=== PATIENT | male | born 1990 | race Caucasian/White ===

== ENCOUNTER → 2024-09-23 09:06 | Outpatient (REF) | payer OTHER, SELFPAY ==
[2024-09-23 13:24] LABS: Mumps Virus IgG Positive; Rubeola (Measles) IgG Positive; Varicella Zoster IgG (VZV) Positive
[2024-09-23 18:34] LABS: Rubella Negative
[2024-09-23 18:54] LABS: Hepatitis B Surface Antibody Negative
[2024-09-25 07:42] LABS: Quantiferon Mitogen minus NIL 9.98 IU/mL; Quantiferon NIL 0.02 IU/mL; Quantiferon Plus TB2 minus NIL 0.01 IU/mL (<=0.34); Quantiferon TB Gold Plus Negative (Negative)
== END ==
LOC: OLAB 09:06
PROVIDERS: ATTENDING PHYSICIAN Nurse Practitioner Family
DX: Z23 Encounter for immunization (principal)
CPT/HCPCS: 36415; 86480; 86706; 86735; 86762; 86765; 86787

== ENCOUNTER → 2024-12-27 15:58 | Outpatient (REF) | payer OTHER, SELFPAY ==
[2024-12-27 17:39] LABS: Hepatitis B Surface Antibody Negative
== END ==
LOC: REG 15:58
PROVIDERS: ATTENDING PHYSICIAN Nurse Practitioner Family
DX: Z23 Encounter for immunization (principal)
CPT/HCPCS: 36415; 86706